=== PATIENT | male | born 1980 | race Caucasian/White ===

== ENCOUNTER 2016-10-22 09:14 | Day surgery (SDC) | payer BC ==
[~2016-10-22] VITALS: Ht 193 cm; Wt 113.0 kg
[~2016-10-22 09:14] MED LIST: BUPIVACAINE/PF 0.5% ONE
[2016-10-22] MEDS ORDERED: FENTANYL PF 250 MCG/5ML ONE (09:17)
[2016-10-22] MEDS ORDERED: MIDAZOLAM 1 MG/ML, 2ML ONE (09:17)
[2016-10-22] MEDS ORDERED: LIDOCAINE 1%, 2ML ONE (09:38)
[2016-10-22 09:44] VITALS: BP 141/92
[2016-10-22] MEDS ORDERED: LACTATED RINGERS 1,000 ML IV SCH (09:52)
[2016-10-22] MEDS ORDERED: PLEASE ENTER ALLERGIES MC SCH ×2 (10:30)
[2016-10-22] MEDS ORDERED: MIDAZOLAM 1 MG/ML, 2ML IV PRN (11:00)
[2016-10-22] MEDS ORDERED: ACETAMINOPHEN 325 MG TABLET PO PRN (11:00)
[2016-10-22] MEDS ORDERED: OXYcodone 5 MG/5 ML ORAL.SOL UDC PO PRN (11:00)
[2016-10-22] MEDS ORDERED: PROMETHAZINE 25 MG/ML, 1ML IV PRN (11:00)
[2016-10-22] MEDS ORDERED: FENTANYL PF 100 MCG/2ML IV PRN (11:00)
[2016-10-22] MEDS ORDERED: MEPERIDINE/PF 25MG/0.5ML IVPush PRN (11:00)
[2016-10-22] MEDS ORDERED: LABETALOL 5MG/ML, 20ML IV PRN (11:00)
[2016-10-22] MEDS ORDERED: ONDANSETRON 2MG/ML, 2ML IVPush PRN (11:00)
[2016-10-22] MEDS ORDERED: HYDROmorphone 1 MG/ML, 1ML IV PRN (11:00)
[2016-10-22] MEDS ORDERED: ALBUTEROL/IPRATROPIUM 2.5MG/0.5MG, 3 ML NPPB PRN (11:00)
[2016-10-22] MEDS ORDERED: hydrALAzine 20 MG/ML, 1ML IV PRN (11:00)
[2016-10-22] MEDS ORDERED: KETOROLAC 30 MG/1 ML ONE (15:21)
[2016-10-22] MEDS ORDERED: DEXAMETHASONE 4 MG/ML, 1ML ONE (15:21)
[2016-10-22] MEDS ORDERED: CEFAZOLIN 1,000 MG ONE (15:21)
[2016-10-22] MEDS ORDERED: ONDANSETRON 2MG/ML, 2ML ONE (15:21)
[2016-10-22] MEDS ORDERED: PROPOFOL 10 MG/ML, 20ML ONE (15:21)
== END 2016-10-22 14:10 ==
LOC: OUT 09:14
PROVIDERS: ATTEND Orthopaedic Surgery Foot and Ankle Surgery
DX: M25.371 Other instability, right ankle (principal); M21.6X1 Other acquired deformities of right foot; M25.774 Osteophyte, right foot; M65.871 Other synovitis and tenosynovitis, right ankle and foot
CPT/HCPCS: 27696; 29891; C1713; J0690; J1100; J1885; J2250; J2405; J2704; J3010; J3490; J7120